=== PATIENT | female | born 1990 | race Caucasian/White ===

== ENCOUNTER 2019-04-08 22:28 | Emergency (ER) | payer OTHER ==
[2019-04-08 22:47] VITALS: RESP 20; O2SAT 99
[2019-04-08 23:06] LABS: BASOPHILS % (AUTO) 0 % (0-3); EOSINOPHILS % (AUTO) 0 % (0-9); HEMATOCRIT 39 % (35-47); LYMPHOCYTES % (AUTO) 13.8 % (10-50); MEAN CORPUSCULAR HEMOGLOBIN 29.7 pg (27.0-32.0); MEAN CORPUSCULAR HGB CONC 33.7 gm/dl (32.0-36.0); MEAN CORPUSCULAR VOLUME 88 fL (81-99); NEUTROPHILS % (AUTO) 80.5 % (37-80)
[2019-04-08 23:19] LABS: APPEARANCE,URINE Clear; BILIRUBIN,URINE NEGATIVE (NEGATIVE); COLOR,URINE Yellow; GLUCOSE, URINE (UA) NEGATIVE (NEGATIVE); KETONES,URINE TRACE (NEGATIVE); LEUKOCYTE ESTERASE ,URINE NEGATIVE (NEGATIVE); NITRATE,URINE NEGATIVE (NEGATIVE); OCCULT BLOOD,URINE 2+ (NEG-TRACE); PH,URINE 5.5; UROBILINOGEN,URINE 0.2 (0.2-1.0 EU)
[2019-04-08 23:21] LABS: ALBUMIN 2.8 gm/dl (3.4-5.0); BILIRUBIN,TOTAL 0.2 mg/dl (0.2-1.0); CALCIUM 8.5 mg/dl (8.5-10.1); CARBON DIOXIDE 25.5 mEq/L (21-32); CREATININE 0.77 mg/dl (0.60-1.00); POTASSIUM 3.8 mMol/L (3.5-5.1); TOTAL PROTEIN 6.6 gm/dl (6.4-8.2)
[2019-04-08 23:37] LABS: BACTERIA NEGATIVE (< 1+); CRYSTALS NEGATIVE (0-3 AVE/HPF); EPITHELIAL CELLS 0-1 (SQUAMOUS); WBC,URINE 0-2 (0-5AV/HPF)
[2019-04-09 00:24] VITALS: BP 126/87; PULSE 68; TEMP 96.8
== END 2019-04-09 00:15 | disposition home or self-care (01) | DRG 392 ==
LOC: ED 22:28
DX: R10.9 Unspecified abdominal pain (principal); Z34.90 Encounter for supervision of normal pregnancy, unspecified, unspecified trimester
CPT/HCPCS: 36415; 80053; 81001; 85025; 99282

== ENCOUNTER 2019-06-23 14:49 | Observation (INO) | payer OTHER | END 2019-06-23 17:50 | disposition home or self-care (01) | LOC: OB 14:49 ==

== ENCOUNTER 2019-06-28 20:00 | Inpatient (IN) | payer OTHER ==
[2019-06-28] MEDS ORDERED: MEPIVACAINE HCL 1% MPF 30 ML/VIAL SOL INFIL PRN (21:30)
[2019-06-28] MEDS ORDERED: FENTANYL 100MCG/2ML SOL IV PRN (21:30)
[2019-06-28] MEDS ORDERED: AMPICILLIN 1 GM PDS 2 GM in SODIUM CHLORIDE 0.9% 100 ML 100 ML IV ONE (21:30)
[2019-06-28] MEDS ORDERED: LACTATED RINGERS 1,000 ML IV PRN (21:30)
[2019-06-28] MEDS ORDERED: METHYLERGONOVINE MALEATE 0.2 MG/ML SOL IM PRN (21:30)
[2019-06-28] MEDS ORDERED: OXYTOCIN 10000 MU/ML SOL IM PRN (21:30)
[2019-06-28] MEDS ORDERED: CARBOPROST 250 MCG/ML SOL IM PRN (21:30)
[2019-06-28] MEDS ORDERED: SODIUM CHLORIDE 0.9% 50 ML 25 ML IV PRN (21:30)
[2019-06-28] MEDS: SODIUM CHLORIDE 0.9% FLUSH 10 ML SOL IV SCH (21:45)
[2019-06-28 21:53] LABS: BASOPHILS % (AUTO) 1 % (0-3); EOSINOPHILS % (AUTO) 1 % (0-9); HEMATOCRIT 41 % (35-47); HEMOGLOBIN 13.1 gm/dl (12.0-15.5); LYMPHOCYTES % (AUTO) 18.7 % (10-50); MEAN CORPUSCULAR HEMOGLOBIN 29.6 pg (27.0-32.0); MEAN CORPUSCULAR VOLUME 92 fL (81-99); MONOCYTES % (AUTO) 6.8 % (0-12); NEUTROPHILS % (AUTO) 73.1 % (37-80)
[2019-06-28 22:43] LABS: ABO A; ANTIBODY SCREEN Negative; RH TYPE Positive
[2019-06-28] MEDS ORDERED: AMPICILLIN 1 GM PDS ONE (23:42)
[2019-06-28] MEDS: SODIUM CHLORIDE 0.9% FLUSH 10 ML SOL IV PRN (23:54)
[2019-06-29] MEDS ORDERED: AMPICILLIN 1 GM PDS ONE ×3 (02:55→09:51)
[2019-06-29] MEDS: AMPICILLIN 1 GM PDS 1 GM in SODIUM CHLORIDE 0.9% 100 ML 100 ML IV SCH ×3 (03:47→12:04)
[2019-06-29] MEDS: SODIUM CHLORIDE 0.9% FLUSH 10 ML SOL IV PRN (03:48)
[2019-06-29] MEDS ORDERED: GUAIFENESIN 200 MG/10 ML SOL PO PRN (04:08)
[2019-06-29] MEDS ORDERED: TERBUTALINE SULFATE 1 MG/ML SOL SC PRN (04:09)
[2019-06-29] MEDS ORDERED: OXYTOCIN 10000 MU/ML 20,000 MU in LACTATED RINGERS 1,000 ML IV SCH (04:15)
[2019-06-29] MEDS ORDERED: LACTATED RINGERS 1,000 ML IV SCH ×2 (05:30→10:15)
[2019-06-29] MEDS: SODIUM CHLORIDE 0.9% FLUSH 10 ML SOL IV SCH ×3 (05:33→21:42)
[2019-06-29] MEDS ORDERED: DIPHENHYDRAMINE 50 MG/ML SOL IV PRN (10:11)
[2019-06-29] MEDS ORDERED: EPHEDRINE SULFATE 50 MG/ML SOL IV PRN (10:11)
[2019-06-29] MEDS ORDERED: NALBUPHINE HCL 20 MG/ML SOL IV PRN (10:11)
[2019-06-29] MEDS ORDERED: NALOXONE HYDROCHLORIDE 0.4 MG/ML SOL IV PRN (10:11)
[2019-06-29] MEDS: LACTATED RINGERS 1,000 ML IV SCH ×2 (10:15→10:30)
[2019-06-29] MEDS ORDERED: LIDOCAINE HCL 2% MPF 10 ML SOL ONE (10:28)
[2019-06-29] MEDS ORDERED: LIDOCAINE 1% W/EPI MPF 30 ML SOL ONE (10:31)
[2019-06-29] MEDS ORDERED: FENTANYL 250 MCG/ 5ML SOL ONE (11:11)
[2019-06-29] MEDS ORDERED: ROPIVACAINE HYDROCHLORIDE 5 MG/ML SOL ONE (11:11)
[2019-06-29] MEDS ORDERED: TEMAZEPAM 15MG 15 MG CAP PO PRN (13:00)
[2019-06-29] MEDS ORDERED: METHYLERGONOVINE MALEATE 0.2 MG TAB PO PRN (13:00)
[2019-06-29] MEDS ORDERED: BENZOCAINE/MENTHOL 1 SPR TOP PRN (13:00)
[2019-06-29] MEDS ORDERED: APAP/HYDROCODONE 1 EACH TABLET PO PRN (13:00)
[2019-06-29] MEDS ORDERED: FLEET ENEMA PR PRN (13:00)
[2019-06-29] MEDS ORDERED: WITCH HAZEL 1 EA PAD TOP PRN (13:00)
[2019-06-29] MEDS ORDERED: BISACODYL 10 MG SUP PR PRN (13:00)
[2019-06-29] MEDS: IBUPROFEN 600 MG TAB PO PRN ×2 (14:57→21:41)
[2019-06-29] MEDS: DOCUSATE SODIUM 100 MG SGL PO SCH (21:41)
[2019-06-30] MEDS: SODIUM CHLORIDE 0.9% FLUSH 10 ML SOL IV SCH ×2 (06:27→14:23)
[2019-06-30] MEDS: DOCUSATE SODIUM 100 MG SGL PO SCH ×2 (09:18→21:43)
[2019-06-30] MEDS: IBUPROFEN 600 MG TAB PO PRN ×3 (09:18→21:43)
[2019-06-30] MEDS ORDERED: DM/GUAIFENESIN SYRUP 10 ML SYRP ONE (21:41)
[2019-06-30] MEDS ORDERED: GUAIFENESIN 200 MG/10 ML SOL ONE (21:47)
[2019-07-01 08:32] VITALS: BP 118/79; PULSE 75; RESP 18; TEMP 97.2; O2SAT 98
[2019-07-01] MEDS: IBUPROFEN 600 MG TAB PO PRN (08:41)
[2019-07-01] MEDS: DOCUSATE SODIUM 100 MG SGL PO SCH (08:41)
== END 2019-07-01 13:00 | disposition home or self-care (01) | DRG 807 ==
LOC: EDSTATUS 20:00 → OBSVTOIN 20:02 → OB 20:02
PROVIDERS: ADMIT Family Medicine; ATTEND Family Medicine
PROC: 0U7C7ZZ Dilation of Cervix, Via Natural or Artificial Opening (ICD-10-PCS; 2019-06-28)
PROC: 10907ZC Drainage of Amniotic Fluid, Therapeutic from Products of Conception, Via Natural or Artificial Opening (ICD-10-PCS; 2019-06-28)
PROC: 3E033VJ Introduction of Other Hormone into Peripheral Vein, Percutaneous Approach (ICD-10-PCS; 2019-06-28)
PROC: 10E0XZZ Delivery of Products of Conception, External Approach (ICD-10-PCS; principal; 2019-06-29)
DX: O80 Encounter for full-term uncomplicated delivery (principal); Z37.0 Single live birth; Z3A.40 40 weeks gestation of pregnancy
CPT/HCPCS: 36415; 59025; 85018; 85025; 86850; 86900; 86901; J0290; J0670; J2590; J2795; J3010; J3105; A9270-GY